=== PATIENT | female | born 1940 | race Caucasian/White ===

== ENCOUNTER → 2018-03-04 | Outpatient (REF) | payer MEDICARE ==
[~2018-03-04] MED LIST: ACCURETI1 PO; ATORVASTATIN CA10 MG PO; BACTRIM DS1 TAB PO; BONIVA150 MG OR; CALCIUM600 M1 OR; CLINDAMYCIN300 MG PO; CLOPIDOGREL75 MG PO; DETROL LA4 MG PO; HYDROXYCHLOR200 M1 OR; HYDROXYCHLOR200 M1 PO; IRON325 M1 PO; MULTIVITAM10 OR; VITAMIN B-1100 M2 OR; ZPAK PO
[2018-03-04 08:22] LABS: HEMATOCRIT 40.1 % (37.0-47.0); HEMOGLOBIN 13.1 g/dl (12.0-16.0); IMMATURE GRANULOCYTES 0.3 % (0.0-5.0); MEAN CELL VOLUME 101.5 fL CALC (80.0-100.0); MEAN CORPUSCULAR HGB 33.2 pG CALC (26.0-32.0); MEAN CORPUSCULAR HGB CONC 32.7 g/L CALC (32.0-36.0); NEUT# 1.51 thou/uL (2.00-7.15); RED BLOOD COUNT 3.95 mill/uL (4.20-5.60); RED CELL DISTRI WIDTH 12.4 % (11.5-15.5)
[2018-03-04 08:42] LABS: ALBUMIN 3.7 g/dL (3.2-5.0); ALKALINE PHOSPHATASE 60 u/l (38-126); ANION GAP 9 (6-22 (CALC)); BILIRUBIN, TOTAL 1.2 mg/dL (0.0-1.4); BUN 20 mg/dL (8-23); BUN/CREATININE RATIO 37 (12-20 (CALC)); CALCULATED LDLCHOLESTEROL 49 mg/dL (62-129 (CALC)); CARBON DIOXIDE 32 mmol/l (22-30); CHLORIDE 106 mmol/l (95-108); CHOLESTEROL HDL RATIO 1.6 (<4.4 (CALC)); CREATININE 0.5 mg/dL (0.5-1.0); GFR > 60 ML/MIN (>=60 (CALC)); GFR FOR AFR.AMER. > 60 ML/MIN (>=60 (CALC)); HDL CHOLESTEROL 92 mg/dL (>=40); POTASSIUM 4.1 mmol/l (3.5-5.1); SGOT/AST 39 u/l (9-36); SODIUM 143 mmol/l (137-146); TOTAL CHOLESTEROL 151 mg/dl (0-199); TOTAL PROTEIN 6.3 g/dL (6.3-8.2); TOTAL TRIGLYCERIDES 47 mg/dl (30-149); VLDL CHOLESTROL 9 mg/dl (0-48 (CALC))
== END | disposition home or self-care (01) ==
LOC: LAB 07:31
PROVIDERS: ATTEND Internal Medicine
DX: D64.9 Anemia, unspecified (principal); D69.6 Thrombocytopenia, unspecified; D72.819 Decreased white blood cell count, unspecified; I10 Essential (primary) hypertension; L93.2 Other local lupus erythematosus; E78.49 Other hyperlipidemia

== ENCOUNTER → 2018-07-17 | Outpatient (REF) | payer MEDICARE ==
[2018-07-17 08:11] LABS: HEMATOCRIT 38.1 % (37.0-47.0); HEMOGLOBIN 12.3 g/dl (12.0-16.0); IMMATURE GRANULOCYTES 0.3 % (0.0-5.0); MEAN CELL VOLUME 102.7 fL CALC (80.0-100.0); MEAN CORPUSCULAR HGB 33.2 pG CALC (26.0-32.0); MEAN CORPUSCULAR HGB CONC 32.3 g/L CALC (32.0-36.0); NEUT# 1.02 thou/uL (2.00-7.15); RED BLOOD COUNT 3.71 mill/uL (4.20-5.60); RED CELL DISTRI WIDTH 12.8 % (11.5-15.5)
[2018-07-17 08:35] LABS: ALBUMIN 3.5 g/dL (3.2-5.0); ALKALINE PHOSPHATASE 56 u/l (38-126); ANION GAP 10 (6-22 (CALC)); BUN 9 mg/dL (8-23); BUN/CREATININE RATIO 14 (12-20 (CALC)); CARBON DIOXIDE 30 mmol/l (22-30); CHLORIDE 105 mmol/l (95-108); CREATININE 0.6 mg/dL (0.5-1.0); GFR > 60 ML/MIN (>=60 (CALC)); GFR FOR AFR.AMER. > 60 ML/MIN (>=60 (CALC)); POTASSIUM 3.9 mmol/l (3.5-5.1); SGOT/AST 34 u/l (9-36); SODIUM 141 mmol/l (137-146); TOTAL PROTEIN 5.8 g/dL (6.3-8.2)
== END | disposition home or self-care (01) ==
LOC: LAB 07:05
PROVIDERS: ATTEND Internal Medicine
DX: D50.9 Iron deficiency anemia, unspecified (principal); D53.9 Nutritional anemia, unspecified; D69.6 Thrombocytopenia, unspecified; E78.5 Hyperlipidemia, unspecified; I10 Essential (primary) hypertension

== ENCOUNTER → 2018-07-22 | Outpatient (REF) | payer MEDICARE | END | disposition home or self-care (01) | LOC: MAMMO 07-21 08:30 | PROVIDERS: ATTEND Internal Medicine | DX: Z12.31 Encounter for screening mammogram for malignant neoplasm of breast (principal) ==

== ENCOUNTER 2019-03-01 12:39 | Emergency (ER) | payer MEDICARE ==
[~2019-03-01] VITALS: Ht 160 cm; Wt 56.8 kg
[2019-03-01 13:08] LABS: HEMATOCRIT 34.4 % (37.0-47.0); HEMOGLOBIN 11.5 g/dl (12.0-16.0); IMMATURE GRANULOCYTES 1.1 % (0.0-5.0); MEAN CELL VOLUME 103.3 fL CALC (80.0-100.0); MEAN CORPUSCULAR HGB 34.5 pG CALC (26.0-32.0); MEAN CORPUSCULAR HGB CONC 33.4 g/L CALC (32.0-36.0); NEUT# 2.72 thou/uL (2.00-7.15); RED BLOOD COUNT 3.33 mill/uL (4.20-5.60); RED CELL DISTRI WIDTH 12.8 % (11.5-15.5)
[2019-03-01] MEDS ORDERED: PROTONIX40 M2 PO (13:14)
[2019-03-01 13:32] LABS: ANION GAP 10 (6-22 (CALC)); BUN 17 mg/dL (8-23); BUN/CREATININE RATIO 31 (12-20 (CALC)); CARBON DIOXIDE 28 mmol/l (22-30); CHLORIDE 105 mmol/l (95-108); CREATININE 0.5 mg/dL (0.5-1.0); GFR > 60 ML/MIN (>=60 (CALC)); GFR FOR AFR.AMER. > 60 ML/MIN (>=60 (CALC)); POTASSIUM 3.8 mmol/l (3.5-5.1); SODIUM 139 mmol/l (137-146)
[2019-03-01] MEDS ORDERED: TRAMADOL HYDROC50 MG PO (13:41)
[2019-03-01 21:30] VITALS: BP 158/69
== END 2019-03-01 21:30 | disposition short-term general hospital (02) ==
LOC: ED 12:39 → ED-I 13:14 → ED 13:14 → ED-I 15:08 → ED 15:24 → MS2 15:25 → ED 21:30
PROVIDERS: Family Medicine
DX: S72.144A Nondisplaced intertrochanteric fracture of right femur, initial encounter for closed fracture (principal); I10 Essential (primary) hypertension; W18.30XA Fall on same level, unspecified, initial encounter; Y93.E9 Activity, other interior property and clothing maintenance; Y92.009 Unspecified place in unspecified non-institutional (private) residence as the place of occurrence of the external cause; Z86.73 Personal history of transient ischemic attack (TIA), and cerebral infarction without residual deficits

== ENCOUNTER 2019-03-14 16:40 | Observation (INO) | payer MEDICARE ==
[~2019-03-14] VITALS: Ht 160 cm; Wt 55.6 kg
[~2019-03-14 16:40] MED LIST changes: +PROTONIX40 M2 PO; +TRAMADOL HYDROC50 MG PO
--- NOTE | 2019-03-14 16:47 | NUR ---
PT TO ROOM VIA WC
[2019-03-14] MEDS ORDERED: POLY GLYCOL3350 MG PO (16:52)
[2019-03-14] MEDS ORDERED: DOCUSATE PO (16:54)
--- NOTE | 2019-03-14 17:05 | NUR ---
PT PRESENTS RIGHT HIP WITH RAISED ROUND NODULE ABOUT 6.5-7 CM IN DIAMITER. BRUISING AND REYNALDO ARE VISIBLE. PT STATES A PAIN OF 10/10. CALL LIGHT WITHIN REACH, WILL CONTINUE TO MONITOR.
--- NOTE | 2019-03-14 17:06 | NUR ---
ASSISTED PT TO BEDSIDE COMODE. COLLECTED URINE AND SENT OUT TO LAB
--- NOTE | 2019-03-14 17:15 | NUR ---
IV INTITIATED, FLUSHED. PT DENIES PAIN AND IV SITE ABSENT OF ANY REDNESS. 20 G USED. LABS DRAWN AND BLOOD CULTURES COLLECTED.
[2019-03-14 17:20] LABS: HEMATOCRIT 30.6 % (37.0-47.0); HEMOGLOBIN 9.7 g/dl (12.0-16.0); IMMATURE GRANULOCYTES 0.4 % (0.0-5.0); MEAN CORPUSCULAR HGB 32.3 pG CALC (26.0-32.0); MEAN CORPUSCULAR HGB CONC 31.7 g/L CALC (32.0-36.0); NEUT# 3.5 thou/uL (2.00-7.15); RED CELL DISTRI WIDTH 17.1 % (11.5-15.5)
[2019-03-14 17:52] LABS: ALBUMIN 3.4 g/dL (3.2-5.0); ALKALINE PHOSPHATASE 114 u/l (38-126); ANION GAP 10 (6-22 (CALC)); BILIRUBIN, TOTAL 1.5 mg/dL (0.0-1.4); BUN 13 mg/dL (8-23); BUN/CREATININE RATIO 25 (12-20 (CALC)); CARBON DIOXIDE 29 mmol/l (22-30); CHLORIDE 100 mmol/l (95-108); CREATININE 0.5 mg/dL (0.5-1.0); GFR > 60 ML/MIN (>=60 (CALC)); GFR FOR AFR.AMER. > 60 ML/MIN (>=60 (CALC)); POTASSIUM 4.2 mmol/l (3.5-5.1); SGOT/AST 26 u/l (9-36); SODIUM 135 mmol/l (137-146); TOTAL PROTEIN 5.9 g/dL (6.3-8.2)
--- NOTE | 2019-03-14 18:15 | NUR ---
PT RESTING ON STRETCHER AOX4. CALL LIGHT WITHIN REACH. PT DENIES ANY NEEDS AT THIS TIME. WILL CONTINUE TO MONITOR.
--- NOTE | 2019-03-14 18:30 | NUR ---
ADMINISTERED PUREWICK.
--- NOTE | 2019-03-14 18:35 | NUR ---
PURWICK REMOVED. UNSUCESSFUL, CHANGED LINENS.
--- NOTE | 2019-03-14 19:03 | NUR ---
REPORT AKIL ROMERO
--- NOTE | 2019-03-14 19:20 | NUR ---
PT UP TO BEDSIDE COMMODE WITH MINIMAL ASSIST. PT STATES SHE FEELS GOOD STANDING. CALL SALMERON IN REACH.
--- NOTE | 2019-03-14 19:30 | NUR ---
PT DONE AND ASSISTED TO WHEEL CHAIR. REPORT GIVEN WAITING ON ORDERS. ALEKSANDR COMPLETE NO REACTION TO MEDICATION. PT STATES SHE PREFERS TO SIT IN CHAIR THEN GET BACK INTO BED.
--- NOTE | 2019-03-14 19:45 | NUR ---
Admission Note Report Given to: MILENA FAIR Transported by: X Wheelchair Stretcher Transported with: X Nurse Transporter X Patent IV O2 Layer Out Plate Glass
[2019-03-14 20:00] VITALS: BP 161/79
--- NOTE | 2019-03-14 21:00 | NUR ---
PATIENT ADMITTED FROM ER VIA WHEELCHAIR WITH ER STAFF IN ATTENDANCE. PATIENT IS AWAKE ALERT AND ORIENTEDX3. PATIENT IS ABLE TO STAND ON SCALE AND TRANSFER TO BED. PATIENT IS BEING ADMITTED FOR RIGHT HIP ABCESS. PATIENT WITH RECENT FALL AT HOME-WAS SENT TO [facility] FOR ORIF RIGHT HIP BY DR. TORRES. PATIENT WAS THEN TRANSFERRED TO [facility] FOR THERAP. DEVELOPED THIS ABCESS WHILE THERE AND SENT TO THER TODAY. PATIENT ALSO WITH STAGE 2 TO BUTTOCKS AND COCCYX AREA. PHOOS WERE TAKEN OF THESE WOUNDS. REYNALDO ARE STILL INTACT TO RIGHT HIP INCISIONS. NO OPEN DRAINAGE NOTED TO RIGHT HIP. BRUISING ALSO NOTED TO RIGHT HI P AND RLE. PATIENT HX OF MRSA-LEFT NARE SWABBED AND PATIENT PLACED ON CONTACT PRECAUTIONS. PATIENT DECLINES TEDS AT THIS TIME. ABD IS SOFT WITH ACTIVE BS. LUNGS ARE CLEAR. NO EDEMA NOTED. PEDAL PULSES ARE PALPABLE. PROVIDED WITH LORETA CRACKERS AND DRINK FOR SNACK. LAST BM WAS 03/12/19 PER PATIENT AND DENIES ANY DIFFICULTY WITH URINATION. PATIENT ORIENTED TO ROOM AND SURROUNDINGS. INSTRUCTED ON USE OF NURSE CALL LIGHT SYSTEM, TV REMOTE AND PHONE. SAFETY PRECAUTIONS REINFORCED. CALL LIGHT IN REACH. WILL CONT TO MONITOR.
--- NOTE | 2019-03-15 01:20 | NUR ---
PATIENT MIN ASSIST TO BR TO VOID YELLOW URINE-PATIENT UP AND DOWN SEVERAL TIMES IN SHORT PERIOD OF TIME-<1HOUR. DENIES ANY BURNING OR PAIN WITH URINATION. MIN ASSIST BACK TO BED WITH USE OF WALKER. ENCOURAGED TO STAY OFF HER BUTTOCK AND POSITIONED ON RIGHT SIDE. SAFETY PRECAUTIONS REINFORCED. CALL LIGHT IN REACH. WILL CONT TO MONITOR.
[2019-03-15 04:04] VITALS: BP 129/74
--- NOTE | 2019-03-15 04:24 | NUR ---
PATIENT APPEARS SLEEPING AT THIS TIME-EYES CLOSED. RESP ARE EVEN AND NLABORED. CALL LIGHT IN REACH. WILL CONT TO MONITOR.
--- NOTE | 2019-03-15 06:21 | NUR ---
PATIENT CALLED AND ASSISTED TO BR TO VOID USING HER WALKER. PATIENT SEEMS TO BE HAVING A POPPING SOUND COMING FROM HER RIGHT HIP. ASSISTED BACK TO BED. CALL LIGHT IN REACH. WILL CONT TO MONITOR.
--- NOTE | 2019-03-15 07:15 | NUR ---
REPORT RECEIVED FROM MILENA FAIR;PT RESTING IN SEMI FOWLERS POSITION;INTRODUCED SELF TO PT AND POC DISCUSSED;RESPIRATIONS EVEN AND UNLABORED ON RA;PT DENIES ANY CURRENT NEEDS AT THIS TIME AND IS ENCOURAGED TO CALL FOR ASSISTANCE IF NEEDED;CONTACT PRRECAUTIONS NOTED;FALL PRECAUTIONS IN PLACE WITH BED IN THE LOWEST POSITION AND CALL LIGHT IN REACH;WILL CONTINUE TO MONITOR
[2019-03-15 08:15] VITALS: BP 133/66
--- NOTE | 2019-03-15 08:15 | NUR ---
PT RESTING IN SEMI FOWLERS POSITION,A&O X3;VS OBTAINED AND ASSESSMENT COMPLETED;PT DENIES ANY CURRENT PAIN OR DISCOMFORTS,PAIN SCALE AND REPORTING EDUCATED;RESPIRATIONS EVEN AND UNLABORED ON RA,CLEAR LUNG SOUNDS;ABDOMEN SOFT ON PALPATION AND ACTIVE IN ALL 4 QUADRANTS;WEAK PEDAL PULSES;STAGE 2 PRESSURE ULCER TO COCCYX NOTED, AQUACEL FOAM DRESSING APPLIED;PT POST OP RIGHT TOTAL HIP, INCISION INTACT BUT SEROMA VS ABSCESS NOTED;BRUSING NOTED THROUGHOUT RIGHT LEG;WEAK PEDAL PULSES;#20G TO RAC FLUSHED AND PATENT,SITE APPEARS HEALTHY;PT DENIES ANY ADDITIONAL NEEDS AT THIS TIME AND IS ENCOURAGED TO CALL FOR ASSISTANCE IF NEEDED;FALL PRECAUTIONS IN PLACE WITH CALL LIGHT IN REACH;WILL CONTINUE TO MONITOR
--- NOTE | 2019-03-15 10:17 | NUR ---
WES RIOS, ANRP AT BEDSIDE DISCUSSING POC.
--- NOTE | 2019-03-15 10:26 | NUR ---
PT RESTING IN SEMI FOWLERS POSITION COMPLAINING FOR RT HIP PAIN RATING 7/10 ON THE PAIN SCALE AND REQUESTS PAIN MEDICATION;PT MEDICATED WITH PERCOCET 5/325MG PO;WILL CONTINUE TO MONITOR FOR EFFECTIVENESS
--- NOTE | 2019-03-15 11:32 | NUR ---
AT BEDSIDE DISCUSSING POC.
--- NOTE | 2019-03-15 12:00 | NUR ---
PT OOB RESTING IN RECLINER WITH SPOUSE AT BEDSIDE;RESPIRATIONS EVEN AND UNLABORED ON RA;PT DENIES ANY CURRENT PAIN OR DISCOMFORTS;ASSESSMENT REMAINS UNCHANGED AT THIS TIME AND IS ENCOURAGED TO CALL FOR ASSISTANCE IF NEEDED;FALL PRECAUTIONS IN PLACE WITH CALL LIGHT IN REACH;WILL CONTINUE TO MONITOR
--- NOTE | 2019-03-15 15:08 | NUR ---
PHYSICAL THERAPY AT BEDSIDE WORKING WITH PATIENT.
[2019-03-15 16:36] VITALS: BP 123/62
--- NOTE | 2019-03-15 16:40 | NUR ---
PT OOB RESTING IN RECLINER;RESPIRATIONS EVEN AND UNLABORED ON RA;PT REPORTS RIGHT HIP PAIN RATING 8/10 ON THE PAIN SCALE AND REQUESTS PRN PAIN MEDICATION, PT TO BE MEDICATED WITH PRN PERCOCET 5/325MG PO;IV SITE TO RAC REMAINS PATENT;PT DENIES ANY ADDITIONAL NEEDS AT THIS TIME AND IS ENCOURAGED TO CALL FOR ASSISTANCE IF NEEDED;FALL PRECAUTIONS IN PLACE WITH CALL LIGHT IN REACH;WILL CONTINUE TO MONITOR
[2019-03-15 18:59] VITALS: BP 106/51
--- NOTE | 2019-03-15 19:30 | NUR ---
PATIENT RESTING IN BED WITH EYES CLOSED-APPEARS SLEEPING AT THIS TIME. RESP ARE EVEN AND UNLABORED. CALL LIGHT IN REACH. WILL CONT TO MONITOR.
--- NOTE | 2019-03-15 21:38 | NUR ---
PATIENT RESTING IN BED-C/O RIGHT HIP PAIN. TOO EARLY FOR PERCOCET SO PATIENT REQUESTING TYLENOL FOR PAIN-8/10 ON PAIN SCALE. MEDICATED WITH TYLENOL 650MG PO FOR PAIN. RIGHT HIP ABCESS REMAINS BUT THE ABCESS IS MUCH SOFTER AND FEELS FLUID FILLED COMPARED TO LAST NIGHT AND EVEN THIS MORNING-WAS HARDER TO TOUCH WHEN ADMITTED LAST NIGHT. BRUISING REMAINS TO RIGHT HIP AND RLE. ENCOURAGED PATIENT TO STAY OFF BUTTOCKS AND COCCYX DUE TO STAGE 2 TO BUTTOCKS. VERBALIZES UNDERSTANDING BUT FOUND ON HER BACK MOST OF THE TIME. SALINE LOCK INTACT TO LEFT AC-REMAINS HEALTHY AT THIS TIME. CONTACT PRECAUTIONS FOR HX OF MRSA. SAFETY PRECAUTIONS REINFORCED. CALL LIGHT IN REACH. WILL CONT TO MONITOR.
--- NOTE | 2019-03-15 23:25 | NUR ---
PATIENT STATES NO RELIEF FROM TYLENOL GIVEN. MEDICATED WITH PERCOCET 5/325MG PO FOR 8/10 PAIN TO RIGHT HIP. MEDICATED EALIER FOR SLEEP. SAFETY PRECAUTIONS REINFORCED. CALL LIGHT IN REACH. WILL CONT TO MONITOR.
--- NOTE | 2019-03-16 03:37 | NUR ---
PATIENT APPEARS SLEEPING WITH EYES CLOSED. RESP ARE EVEN AND UNLABORED, CALL LIGHT IN REACH. WILL CONT TO MONITOR.
[2019-03-16 04:05] VITALS: BP 139/61
--- NOTE | 2019-03-16 06:55 | NUR ---
REPORT RECEIVED FROM MILENA FAIR;PT RESTING IN SEMI FOWLERS POSITION;INTRODUCED SELF TO PT AND POC DISCUSSED;RESPIRATIONS EVEN AND UNLABORED ON RA;PT DENIES ANY CURRENT NEEDS AND IS ENCOURAGED TO CALL FOR ASSISTANCE IF NEEDED;FALL PRECAUTIONS IN PLACE WITH BED IN THE LOWEST POSITION AND CALL LIGHT IN REACH;WILL CONTINUE TO MONITOR
[2019-03-16 07:24] LABS: HEMATOCRIT 30.8 % (37.0-47.0); HEMOGLOBIN 9.8 g/dl (12.0-16.0); MEAN CELL VOLUME 101.7 fL CALC (80.0-100.0); MEAN CORPUSCULAR HGB 32.3 pG CALC (26.0-32.0); MEAN CORPUSCULAR HGB CONC 31.8 g/L CALC (32.0-36.0); RED BLOOD COUNT 3.03 mill/uL (4.20-5.60); RED CELL DISTRI WIDTH 16.9 % (11.5-15.5)
[2019-03-16 07:41] LABS: PROTHROMBIN TIME 10.1 SECONDS (9.0-12.5)
--- NOTE | 2019-03-16 07:50 | NUR ---
PT OOB RESTING IN RECLINER,A&O TO PERSON AND PLACE FORGETFUL AT TIMES;VS OBTAINED AND ASSESSMENT COMPLETED;PT DENIES ANY CURRENT PAIN OR DISCOMFORTS,PAIN SCALE AND REPORTING EDUCATED;PT VERBALIZES UNDERSTANDING OF SCHEDULED GUIDED US NEEDLE ASPIRATION OF RT HIP,ALL QUESTIONS ANSWERED;RESPIRATIONS EVEN AND UNLABORED ON RA,CLEAR LUNG SOUNDS;ABDOMEN SOFT ON PALPATION AND ACTIVE IN ALL 4 QUADRANTS;BRUISING AND SOFT SEROMA NOTED TO RIGHT HIP, INCISONAL REYNALDO NOTED TO BE IN PLACE FROM POST OP ORIF;STRONG PEDAL PULSES;STAGE 2 PRESSURE ULCER NOTED TO COCCYX, PT REFUSES DRESSING AT THIS TIME;ENCOURAGED FREQUENT RE-POSITIONING;#20G TO RAC FLUSHED AND PATENT,SITE APPEARS HEALTHY;CONTACT PRECAUTIONS IN PLACE;PT DENIES ANY ADDITIONAL NEEDS AND IS ENCOURAGED TO CALL FOR ASSISTANCE IF NEEDED;FALL PRECAUTIONS IN PLACE WITH CALL LIGHT IN REACH;WILL CONTINUE TO MONITOR
[2019-03-16 07:52] VITALS: BP 132/68
--- NOTE | 2019-03-16 07:58 | NUR ---
PT TRANSPORTED TO RADIOLOGY VIA WHEELCHAIR IN STABLE CONDITION VIA WHEELCHAIR ACCOMPANIED BY ROSIE TIM.
--- NOTE | 2019-03-16 08:28 | NUR ---
PT RETURNED BACK TO MED/SURG ROOM 290 IN STABLE CONDITION VIA WHEELCHAIR ACCOMPANIED BY ROSIE TIM.
--- NOTE | 2019-03-16 09:05 | NUR ---
PT REPORTS RT HIP PAIN RATING 7/10 ON THE PAIN SCALE AND REQUESTS PAIN MEDICATION, PT MEDICATED WITH PRN PERCOCET 5/325MG PO AND RE-POSITIONED FOR COMFORT;WILL CONTINUE TO MONITOR
--- NOTE | 2019-03-16 09:56 | NUR ---
PHYSICAL THERAPY AMBULATING THE HALLWAY WITH PATIENT.
--- NOTE | 2019-03-16 11:19 | NUR ---
PATIENT REPORTED HER HIP IS BETTER AFTER THEY EXTRACTED BLOOD. PATIENT PERFORMED GAIT TRAINING USING 2WW, 120 FEET, CGA/SBA FOR SAFETY. VERBAL CUES NEEDED TO WIDEN KEN TO INCREASE STABILITY AND PREVENT HIP PAIN DUE TO POOR POSTURE, B LE SHOULD BE SHOULDER LENGTH. PATIENT ABLE TO CORRECTLY RETURN DEMONSTRATE. PATIENT PERFORMED TRANSFER TRAINING (SIT <> STAND), SUPREVISION/MOD-I WITH GOOD SEQUENCING AND SAFETY AWARENESS.
--- NOTE | 2019-03-16 11:55 | NUR ---
AT BEDSIDE DISCUSSING POC WITH PT AND SPOUSE.
--- NOTE | 2019-03-16 11:57 | NUR ---
CALLED PLACED TO 'S OFFICE REGARDING CONSULT.
--- NOTE | 2019-03-16 12:00 | NUR ---
PT OOB RESTING IN RECLINER WITH SPOUSE AT BEDSIDE;RESPIRATIONS EVEN AND UNLABORED ON RA;PT DENIES ANY CURRENT PAIN OR DISCOMFORTS;IV SITE PATENT;ASSESSMENT REMAINS UNCHANGED AT THIS TIME;ENCOURAGED TO CALL FOR ASSISTANCE IF NEEDED;CALL LIGHT IN REACH;WILL CONTINUE TO MONITOR
--- NOTE | 2019-03-16 12:55 | NUR ---
PT MEDICATED WITH PRN TYLENOL 650MG PO FOR RIGHT HIP PAIN RATING 4/10 ON THE PAIN SCALE,WILL CONTINUE TO MONITOR
--- NOTE | 2019-03-16 13:11 | NUR ---
AT BEDSIDE WITH CAREER PLACEMENT SERVICES COUNSELOR.
[2019-03-16] MEDS ORDERED: PERCOCET 5/325M1 TAB PO (13:19)
[2019-03-16 14:30] VITALS: BP 114/57
--- NOTE | 2019-03-16 15:05 | NUR ---
ALL DISCHARGE INSTRUCTIONS PROVIDED AT THIS TIME;RX FOR PERCOCET PROVIDED AND PT INSTRUCTED TO USE ONLY WHEN NEEDED, F/U WITH PCP AND ,HOME HEALTH AND PT;IV SITE REMOVED WITH CATHETER INTACT;PT DENIES ANY ADDITIONAL NEEDS;WHEELCHAIR TO BE PROVIDED FOR D/C HOME;SPOUSE TO TRANSPORT HOME.
--- NOTE | 2019-03-16 15:15 | NUR ---
Discharge instructions given. Patient verbalizes understanding of same. Discharged in stable condition via Wheelchair to Home with spouse. All belongings sent with pt. Pt transported to [facility] via wheelchair in stable condition accompanied by billy sparks.
== END 2019-03-16 15:15 ==
LOC: ED 16:40 → ED-I 18:32 → ED 18:48 → MS2 18:49
PROVIDERS: Internal Medicine; ADMIT Internal Medicine; ATTEND Internal Medicine
PROC: 0J9L3ZZ Drainage of Right Upper Leg Subcutaneous Tissue and Fascia, Percutaneous Approach (ICD-10-PCS; principal; 2019-03-16)
DX: L76.32 Postprocedural hematoma of skin and subcutaneous tissue following other procedure (principal); I10 Essential (primary) hypertension; K21.9 Gastro-esophageal reflux disease without esophagitis; E78.5 Hyperlipidemia, unspecified; M06.9 Rheumatoid arthritis, unspecified; S72.141D Displaced intertrochanteric fracture of right femur, subsequent encounter for closed fracture with routine healing; X58.XXXD Exposure to other specified factors, subsequent encounter; I69.931 Monoplegia of upper limb following unspecified cerebrovascular disease affecting right dominant side; L89.152 Pressure ulcer of sacral region, stage 2; Y83.8 Other surgical procedures as the cause of abnormal reaction of the patient, or of later complication, without mention of misadventure at the time of the procedure; Z87.891 Personal history of nicotine dependence
CPT/HCPCS: J1650

== ENCOUNTER 2019-03-19 10:31 | Emergency (ER) | payer MEDICARE ==
[~2019-03-19] VITALS: Ht 157.5 cm; Wt 56.0 kg
[~2019-03-19 10:31] MED LIST changes: +DOCUSATE PO; +PERCOCET 5/325M1 TAB PO; +POLY GLYCOL3350 MG PO
[2019-03-19 12:28] LABS: HEMATOCRIT 31.8 % (37.0-47.0); HEMOGLOBIN 10.1 g/dl (12.0-16.0); IMMATURE GRANULOCYTES 0.7 % (0.0-5.0); MEAN CELL VOLUME 101.6 fL CALC (80.0-100.0); MEAN CORPUSCULAR HGB 32.3 pG CALC (26.0-32.0); MEAN CORPUSCULAR HGB CONC 31.8 g/L CALC (32.0-36.0); NEUT# 4.26 thou/uL (2.00-7.15); RED BLOOD COUNT 3.13 mill/uL (4.20-5.60); RED CELL DISTRI WIDTH 16.7 % (11.5-15.5)
[2019-03-19 13:25] LABS: ALBUMIN 3.3 g/dL (3.2-5.0); ALKALINE PHOSPHATASE 110 u/l (38-126); ANION GAP 11 (6-22 (CALC)); BILIRUBIN, TOTAL 1.2 mg/dL (0.0-1.4); BUN 13 mg/dL (8-23); BUN/CREATININE RATIO 33 (12-20 (CALC)); CARBON DIOXIDE 28 mmol/l (22-30); CHLORIDE 100 mmol/l (95-108); CREATININE 0.4 mg/dL (0.5-1.0); GFR > 60 ML/MIN (>=60 (CALC)); GFR FOR AFR.AMER. > 60 ML/MIN (>=60 (CALC)); POTASSIUM 4.1 mmol/l (3.5-5.1); SGOT/AST 25 u/l (9-36); SODIUM 136 mmol/l (137-146); TOTAL PROTEIN 5.9 g/dL (6.3-8.2)
[2019-03-19 14:36] VITALS: BP 131/65
== END 2019-03-19 15:00 | disposition home or self-care (01) ==
LOC: ED 10:31
PROC: 0J9L3ZZ Drainage of Right Upper Leg Subcutaneous Tissue and Fascia, Percutaneous Approach (ICD-10-PCS; principal; 2019-03-19)
DX: L76.32 Postprocedural hematoma of skin and subcutaneous tissue following other procedure (principal); I10 Essential (primary) hypertension; Y83.8 Other surgical procedures as the cause of abnormal reaction of the patient, or of later complication, without mention of misadventure at the time of the procedure; Z86.73 Personal history of transient ischemic attack (TIA), and cerebral infarction without residual deficits; Z79.02 Long term (current) use of antithrombotics/antiplatelets

== ENCOUNTER 2019-04-23 11:55 | Emergency (ER) | payer MEDICARE ==
[~2019-04-23] VITALS: Ht 157.5 cm; Wt 60.0 kg
[2019-04-23 13:00] LABS: IMMATURE GRANULOCYTES 0.3 % (0.0-5.0); MEAN CELL VOLUME 102.4 fL CALC (80.0-100.0); MEAN CORPUSCULAR HGB 31.8 pG CALC (26.0-32.0); NEUT# 2.12 thou/uL (2.00-7.15); RED BLOOD COUNT 3.81 mill/uL (4.20-5.60); RED CELL DISTRI WIDTH 14.2 % (11.5-15.5)
[2019-04-23 13:05] LABS: HEMOGLOBIN 12.1 g/dl (12.0-16.0)
[2019-04-23 13:20] LABS: ALBUMIN 3.6 g/dL (3.2-5.0); ALKALINE PHOSPHATASE 77 u/l (38-126); ANION GAP 11 (6-22 (CALC)); BUN 20 mg/dL (8-23); BUN/CREATININE RATIO 41 (12-20 (CALC)); CARBON DIOXIDE 28 mmol/l (22-30); CHLORIDE 102 mmol/l (95-108); CREATININE 0.5 mg/dL (0.5-1.0); GFR > 60 ML/MIN (>=60 (CALC)); GFR FOR AFR.AMER. > 60 ML/MIN (>=60 (CALC)); LIPASE < 10 u/l (23-300); POTASSIUM 4.1 mmol/l (3.5-5.1); SGOT/AST 33 u/l (9-36); SODIUM 137 mmol/l (137-146); TOTAL PROTEIN 6.2 g/dL (6.3-8.2)
[2019-04-23 13:23] LABS: URINE BILIRUBIN - DIPSTICK NEGATIVE (NEGATIVE); URINE BLOOD DIPSTICK NEGATIVE (NEGATIVE); URINE COLOR YELLOW; URINE GLUCOSE - DIPSTICK NEGATIVE (NEGATIVE); URINE KETONE NEGATIVE (NEGATIVE); URINE LEUK ESTERASE NEGATIVE (NEGATIVE); URINE NITRITE - DIPSTICK NEGATIVE (Negative); URINE PROTEIN - DIPSTICK NEGATIVE (NEG-TRACE); URINE SPECIFIC GRAVITY 1.025; URINE UROBILINOGEN - DIPSTICK 0.2 E.U./dL (0.2)
[2019-04-23 13:23] LABS: AMYLASE < 30 u/l (30-110); BILIRUBIN, TOTAL 0.7 mg/dL (0.0-1.4)
[2019-04-23 13:32] LABS: MYOGLOBIN 65 ng/mL (0 - 62)
[2019-04-23] MEDS ORDERED: ONDANSETRON4 MG PO (14:09)
[2019-04-23] MEDS ORDERED: ANTIVERT PO (14:09)
[2019-04-23 14:34] VITALS: BP 144/63
== END 2019-04-23 14:34 | disposition home or self-care (01) ==
LOC: ED 11:55
PROVIDERS: Emergency Medicine
DX: R42 Dizziness and giddiness (principal); I10 Essential (primary) hypertension; Z86.73 Personal history of transient ischemic attack (TIA), and cerebral infarction without residual deficits

== ENCOUNTER → 2024-01-27 | Emergency (ER) | payer MEDICARE ==
[~2024-01-27] VITALS: Ht 157.5 cm; Wt 58.9 kg
[2024-01-27] VITALS (9 sets, daily range): BP systolic 142–165; BP diastolic 65–105
[~2024-01-27] MED LIST changes: +ANTIVERT PO; +ONDANSETRON4 MG PO; +TRAMADOL HYDROC50 M1 PO; +traMADol HCL 50 MG/TAB PO ONE
[2024-01-27 10:00] LABS: BASO% 0.9 % (0-3); EOS% 1.1 % (0-8); HEMATOCRIT 35.2 % (37.0-47.0); HEMOGLOBIN 11.4 g/dl (12.0-16.0); IMMATURE GRANULOCYTES 0.3 % (0.0-5.0); LYMPH% 9.5 % (15-41); MEAN CELL VOLUME 103.2 fL CALC (80.0-100.0); MEAN CORPUSCULAR HGB 33.4 pG CALC (26.0-32.0); MEAN CORPUSCULAR HGB CONC 32.4 g/dL CAL (32.0-36.0); MONO% 10.7 % (2-13); NEUT% 77.5 % (42-76); RED BLOOD COUNT 3.41 mill/uL (4.20-5.60); RED CELL DISTRI WIDTH 13.8 % (11.5-15.5)
[2024-01-27 10:10] LABS: ALBUMIN 3.7 g/dL (3.2-5.0); CREATININE 0.7 mg/dL (0.5-1.0); POTASSIUM 3.5 mmol/l (3.5-5.1)
== END | disposition home or self-care (01) ==
LOC: ED 09:29
PROVIDERS: Family Medicine
DX: S80.01XA Contusion of right knee, initial encounter (principal); S81.812A Laceration without foreign body, left lower leg, initial encounter; I10 Essential (primary) hypertension; E78.5 Hyperlipidemia, unspecified; W01.0XXA Fall on same level from slipping, tripping and stumbling without subsequent striking against object, initial encounter; Y92.009 Unspecified place in unspecified non-institutional (private) residence as the place of occurrence of the external cause; Z86.73 Personal history of transient ischemic attack (TIA), and cerebral infarction without residual deficits

== ENCOUNTER 2024-06-07 13:02 | Emergency (ER) | payer MEDICARE ==
[~2024-06-07] VITALS: Ht 152.4 cm; Wt 45.3 kg
[2024-06-07] VITALS (7 sets, daily range): BP systolic 109–135; BP diastolic 49–61
[~2024-06-07 13:02] MED LIST changes: -PROTONIX40 M2 PO; +PROTONIX40 MG PO; -traMADol HCL 50 MG/TAB PO ONE
== END 2024-06-07 16:32 | disposition home or self-care (01) ==
LOC: ED 13:02
DX: T17.928A Food in respiratory tract, part unspecified causing other injury, initial encounter (principal); I10 Essential (primary) hypertension; K21.9 Gastro-esophageal reflux disease without esophagitis; M06.9 Rheumatoid arthritis, unspecified; W44.F3XA Food entering into or through a natural orifice, initial encounter; Y92.129 Unspecified place in nursing home as the place of occurrence of the external cause; Z95.810 Presence of automatic (implantable) cardiac defibrillator; Z86.73 Personal history of transient ischemic attack (TIA), and cerebral infarction without residual deficits; Z87.11 Personal history of peptic ulcer disease

== ENCOUNTER 2024-06-14 10:55 | Inpatient (IN) | payer MEDICARE ==
[~2024-06-14] VITALS: Ht 152.4 cm; Wt 47.6 kg
[2024-06-14] VITALS (36 sets, daily range): BP systolic 105–138; BP diastolic 42–66
[2024-06-14 11:36] LABS: BASO% 0.2 % (0-3); HEMATOCRIT 27.4 % (37.0-47.0); IMMATURE GRANULOCYTES 1.4 % (0.0-5.0); MEAN CELL VOLUME 117.1 fL CALC (80.0-100.0); MEAN CORPUSCULAR HGB 34.2 pG CALC (26.0-32.0); MEAN CORPUSCULAR HGB CONC 29.2 g/dL CAL (32.0-36.0); MONO% 4.3 % (2-13); NEUT# 12.58 thou/uL (2.00-7.15); NEUT% 90.1 % (42-76); RED BLOOD COUNT 2.34 mill/uL (4.20-5.60); RED CELL DISTRI WIDTH 19.1 % (11.5-15.5)
[2024-06-14 11:44] LABS: ALBUMIN 2.7 g/dL (3.2-5.0); CREATININE 0.6 mg/dL (0.5-1.0); POTASSIUM 3.2 mmol/l (3.5-5.1); TOTAL PROTEIN 5.2 g/dL (6.3-8.2)
[2024-06-14 14:06] LABS: URINE BILIRUBIN - DIPSTICK Negative (NEGATIVE); URINE BLOOD DIPSTICK Negative (NEGATIVE); URINE GLUCOSE - DIPSTICK Negative (NEGATIVE); URINE KETONE Negative (NEGATIVE); URINE LEUK ESTERASE Trace (NEGATIVE); URINE NITRITE - DIPSTICK Negative (Negative); URINE PROTEIN - DIPSTICK Negative (NEG-TRACE); URINE SPECIFIC GRAVITY 1.025; URINE UROBILINOGEN - DIPSTICK 0.2 E.U./dL (0.2)
[2024-06-14 14:20] LABS: URINE COLOR Yellow
[2024-06-14] MEDS ORDERED: POTASSIUM CHLORIDE 20 MEQ/TAB PO ONE (15:00)
[2024-06-14] MEDS ORDERED: traMADol HCL 50 MG/TAB PO PRN (16:05)
[2024-06-14] MEDS ORDERED: ACETAMINOPHEN 325 MG/TAB PO PRN (16:05)
[2024-06-14] MEDS ORDERED: MAGNESIUM HYDROXIDE 30 ML UDC PO PRN (16:05)
[2024-06-14] MEDS ORDERED: KEFLEX500 MG PO (16:06)
[2024-06-14] MEDS ORDERED: TRAZODONE50 MG PO (16:21)
[2024-06-14] MEDS ORDERED: LISINOPRIL20 M1 PO (16:22)
[2024-06-14] MEDS ORDERED: POT CHLORIDE10 ME5 PO (16:23)
[2024-06-14] MEDS ORDERED: Zaleplon 5 MG/CAP PO PRN (20:45)
[2024-06-14] MEDS ORDERED: CEPHALEXIN MONOHYDRATE 500 MG/CAP PO SCH (21:00)
[2024-06-14] MEDS ORDERED: PANTOPRAZOLE SODIUM Sesquihydr 40 MG/TAB PO SCH (21:00)
[2024-06-14] MEDS ORDERED: ENOXAPARIN SODIUM 40 MG/0.4 ML SYR SC SCH (21:00)
[2024-06-15] VITALS (13 sets, daily range): BP systolic 87–112; BP diastolic 34–68
[2024-06-15] MEDS ORDERED: [UNRECOGNIZED DRUG - OTHER] PO (00:43)
[2024-06-15] MEDS ORDERED: MULTI VIT PO (00:44)
[2024-06-15 04:09] LABS: ALBUMIN 2.3 g/dL (3.2-5.0); BILIRUBIN, TOTAL 0.9 mg/dL (0.02-1.3); CREATININE 0.8 mg/dL (0.5-1.0); MAGNESIUM 1.9 mg/dL (1.6-2.3); POTASSIUM 3.8 mmol/l (3.5-5.1); TOTAL PROTEIN 4.6 g/dL (6.3-8.2)
[2024-06-15 04:13] LABS: BASO% 0.5 % (0-3); EOS% 0.6 % (0-8); HEMATOCRIT 23.8 % (37.0-47.0); HEMOGLOBIN 7.4 g/dl (12.0-16.0); IMMATURE GRANULOCYTES 1.2 % (0.0-5.0); LYMPH% 13.7 % (15-41); MEAN CORPUSCULAR HGB 34.1 pG CALC (26.0-32.0); MEAN CORPUSCULAR HGB CONC 31.1 g/dL CAL (32.0-36.0); MONO% 6.7 % (2-13); NEUT# 6.18 thou/uL (2.00-7.15); NEUT% 77.3 % (42-76); RED BLOOD COUNT 2.17 mill/uL (4.20-5.60); RED CELL DISTRI WIDTH 19.6 % (11.5-15.5)
[2024-06-15 04:20] LABS: MEAN CELL VOLUME 109.7 fL CALC (80.0-100.0)
[2024-06-15] MEDS ORDERED: SODIUM CHLORIDE 0.9% 1,000 ML IV PRN ×2 (07:45→10:00)
[2024-06-15] MEDS ORDERED: ATORVASTATIN CALCIUM 10 MG/TAB PO SCH (09:00)
[2024-06-15] MEDS ORDERED: FERROUS SULFATE 325 MG/TAB PO SCH (09:00)
[2024-06-15] MEDS ORDERED: HYDROXYCHLOROQUINE SULFATE 200 MG/TAB PO SCH (09:00)
[2024-06-15] MEDS ORDERED: SODIUM CHLORIDE 0.9% 500 ML IV SCH (10:30)
[2024-06-15] MEDS ORDERED: FUROSEMIDE 40 MG/4 ML SDV IV SCH (10:30)
[2024-06-15] MEDS ORDERED: FUROSEMIDE 40 MG/4 ML SDV IV ONE (21:05)
[2024-06-15] MEDS ORDERED: LACTATED RINGER'S 1,000 ML IV PRN (22:40)
[2024-06-16 00:56] VITALS: BP 99/48
[2024-06-16 03:05] VITALS: BP 113/30
[2024-06-16 05:47] LABS: BASO% 0.6 % (0-3); EOS% 2.9 % (0-8); IMMATURE GRANULOCYTES 1.7 % (0.0-5.0); LYMPH% 14.7 % (15-41); MEAN CELL VOLUME 104.5 fL CALC (80.0-100.0); MEAN CORPUSCULAR HGB 32.3 pG CALC (26.0-32.0); MEAN CORPUSCULAR HGB CONC 30.9 g/dL CAL (32.0-36.0); MONO% 7.9 % (2-13); NEUT# 4.77 thou/uL (2.00-7.15); NEUT% 72.2 % (42-76); RED BLOOD COUNT 3.1 mill/uL (4.20-5.60); RED CELL DISTRI WIDTH 23.6 % (11.5-15.5)
[2024-06-16 05:55] LABS: HEMATOCRIT 32.4 % (37.0-47.0)
[2024-06-16 06:01] LABS: ALBUMIN 2.4 g/dL (3.2-5.0); CREATININE 0.6 mg/dL (0.5-1.0); MAGNESIUM 2.3 mg/dL (1.6-2.3)
[2024-06-16 06:25] LABS: BILIRUBIN, TOTAL 1.7 mg/dL (0.02-1.3); POTASSIUM 4.9 mmol/l (3.5-5.1)
[2024-06-16 07:01] VITALS: BP 137/68
[2024-06-16 10:25] VITALS: BP 109/55
[2024-06-16 15:51] VITALS: BP 116/61
[2024-06-16 19:16] VITALS: BP 101/49
[2024-06-17] VITALS (9 sets, daily range): BP systolic 98–141; BP diastolic 49–65
[2024-06-17 08:41] LABS: ALBUMIN 2.5 g/dL (3.2-5.0); BILIRUBIN, TOTAL 1.2 mg/dL (0.02-1.3); CREATININE 0.5 mg/dL (0.5-1.0); POTASSIUM 4.5 mmol/l (3.5-5.1); TOTAL PROTEIN 4.9 g/dL (6.3-8.2)
[2024-06-17 08:49] LABS: BASO% 0.8 % (0-3); EOS% 1.3 % (0-8); HEMATOCRIT 33.5 % (37.0-47.0); HEMOGLOBIN 10.2 g/dl (12.0-16.0); LYMPH% 14.1 % (15-41); MEAN CORPUSCULAR HGB 32.3 pG CALC (26.0-32.0); MEAN CORPUSCULAR HGB CONC 30.4 g/dL CAL (32.0-36.0); MONO% 7.3 % (2-13); NEUT# 4.53 thou/uL (2.00-7.15); NEUT% 75.5 % (42-76); RED BLOOD COUNT 3.16 mill/uL (4.20-5.60); RED CELL DISTRI WIDTH 22.6 % (11.5-15.5)
[2024-06-18 00:18] VITALS: BP 101/51
[2024-06-18 01:45] VITALS: BP 101/57
[2024-06-18 04:15] VITALS: BP 123/61
[2024-06-18 06:16] VITALS: BP 123/61
[2024-06-18 07:02] VITALS: BP 126/59
[2024-06-18 10:41] VITALS: BP 100/56
== END 2024-06-18 11:43 | DRG 552 ==
LOC: ED 10:55 → ED-I 13:03 → ED 13:03 → MS2 15:30
PROVIDERS: Family Medicine; Nurse Practitioner Family; ADMIT Internal Medicine; ATTEND Internal Medicine
PROC: 30233N1 Transfusion of Nonautologous Red Blood Cells into Peripheral Vein, Percutaneous Approach (ICD-10-PCS; principal; 2024-06-15)
PROC: 30233N1 Transfusion of Nonautologous Red Blood Cells into Peripheral Vein, Percutaneous Approach (ICD-10-PCS; 2024-06-15)
DX: S22.080A Wedge compression fracture of T11-T12 vertebra, initial encounter for closed fracture (principal); S32.010A Wedge compression fracture of first lumbar vertebra, initial encounter for closed fracture; N39.0 Urinary tract infection, site not specified; D64.9 Anemia, unspecified; I10 Essential (primary) hypertension; F03.90 Unspecified dementia, unspecified severity, without behavioral disturbance, psychotic disturbance, mood disturbance, and anxiety; M06.9 Rheumatoid arthritis, unspecified; K21.9 Gastro-esophageal reflux disease without esophagitis; E78.5 Hyperlipidemia, unspecified; I69.931 Monoplegia of upper limb following unspecified cerebrovascular disease affecting right dominant side; W01.0XXA Fall on same level from slipping, tripping and stumbling without subsequent striking against object, initial encounter; Y92.009 Unspecified place in unspecified non-institutional (private) residence as the place of occurrence of the external cause; Z87.11 Personal history of peptic ulcer disease; Z95.810 Presence of automatic (implantable) cardiac defibrillator; Z98.84 Bariatric surgery status; Z87.891 Personal history of nicotine dependence
CPT/HCPCS: J1650; J1940; P9016

== ENCOUNTER 2024-07-04 10:21 | Inpatient (IN) | payer MEDICARE ==
[2024-07-04] VITALS (45 sets, daily range): BP systolic 122–198; BP diastolic 62–128
[~2024-07-04] VITALS: Ht 152.4 cm; Wt 47.3 kg
[~2024-07-04 10:21] MED LIST changes: +KEFLEX500 MG PO; +LISINOPRIL20 M1 PO; +MULTI VIT PO; +POT CHLORIDE10 ME5 PO; +TRAZODONE50 MG PO; +[UNRECOGNIZED DRUG - OTHER] PO
--- NOTE | 2024-07-04 10:21 | NUR ---
PATIENT TO ER ROOM 10 VIA EMS STRETCHER. SHE CAME FROM [facility]. SHE SATED SHE HAS BEEN HAVING DIFFICULTY BREATHING AT UNKOWN TIME THIS MORNING. MD AT BEDSIDE. RESPIRATORY AT BEDSIDE OBTAINING ABG PATIENT NOTED IN THE 70S ON ROOM AIR AND CYANOTIC. SHE WAS PLACED ON 6L VIA NC.
--- NOTE | 2024-07-04 10:23 | NUR ---
PATIENT TO ROOM 10 VIA EMS
[2024-07-04 11:01] LABS: BASO% 0.1 % (0-3); HEMATOCRIT 37.6 % (37.0-47.0); HEMOGLOBIN 11.9 g/dl (12.0-16.0); IMMATURE GRANULOCYTES 0.5 % (0.0-5.0); LYMPH% 3.7 % (15-41); MEAN CELL VOLUME 100.5 fL CALC (80.0-100.0); MEAN CORPUSCULAR HGB 31.8 pG CALC (26.0-32.0); MEAN CORPUSCULAR HGB CONC 31.6 g/dL CAL (32.0-36.0); MONO% 5.4 % (2-13); NEUT# 13.49 thou/uL (2.00-7.15); NEUT% 90.3 % (42-76); RED BLOOD COUNT 3.74 mill/uL (4.20-5.60)
[2024-07-04 11:23] LABS: BILIRUBIN, TOTAL 1.6 mg/dL (0.02-1.3); CREATININE 0.9 mg/dL (0.5-1.0); TOTAL PROTEIN 5.8 g/dL (6.3-8.2)
[2024-07-04] MEDS ORDERED: KETOROLAC TROMETHAMINE 15 MG/ML SDV IV ONE (11:25)
[2024-07-04] MEDS ORDERED: cefTRIAXone SODIUM 2 GM in SODIUM CHLORIDE 0.9% 100 ML IV ONE (11:25)
[2024-07-04] MEDS ORDERED: AZITHROMYCIN 500 MG in SODIUM CHLORIDE 0.9% 500 ML IV ONE (11:25)
[2024-07-04 11:26] LABS: POTASSIUM 2.7 mmol/l (3.5-5.1)
[2024-07-04] MEDS ORDERED: MAGNESIUM SULFATE HEPTAHYDRATE 50 ML IV ONE (11:30)
[2024-07-04] MEDS ORDERED: POTASSIUM CHLORIDE 20 MEQ/PKT POWDER PO ONE (11:30)
[2024-07-04] MEDS ORDERED: ENOXAPARIN SODIUM 100 MG/ML SYR SC ONE (11:40)
[2024-07-04] MEDS ORDERED: ASPIRIN 81 MG/TAB PO ONE (11:40)
--- NOTE | 2024-07-04 12:20 | NUR ---
CALL PLACED TO NURSE GAMING AT [facility], COMMUNICATION REQUESTING CURRENT [facility] FAX NUMBER GIVEN
[2024-07-04 12:24] LABS: URINE BILIRUBIN - DIPSTICK Negative (NEGATIVE); URINE BLOOD DIPSTICK Moderate (NEGATIVE); URINE GLUCOSE - DIPSTICK Negative (NEGATIVE); URINE KETONE Negative (NEGATIVE); URINE LEUK ESTERASE Negative (NEGATIVE); URINE NITRITE - DIPSTICK Negative (Negative); URINE PH 5.5 (4.5-8.0); URINE PROTEIN - DIPSTICK Negative (NEG-TRACE); URINE SPECIFIC GRAVITY 1.015; URINE UROBILINOGEN - DIPSTICK 0.2 E.U./dL (0.2)
[2024-07-04 12:30] LABS: URINE COLOR Yellow; URINE EPITHELIAL CELLS FEW EPI/hpf (0-FEW)
--- NOTE | 2024-07-04 13:12 | NUR ---
ASSISSTED PATIENT'S SISTER WITH PLACING ADULT BRIEF AND PLACING PILLOWS TO COMFORT BETWEEN LEGS AND FEET.
[2024-07-04] MEDS ORDERED: FUROSEMIDE 40 MG/4 ML SDV IV ONE (13:15)
[2024-07-04] MEDS ORDERED: SODIUM CHLORIDE 0.9% 250 ML IV PRN (13:20)
[2024-07-04] MEDS ORDERED: NITROGLYCERIN IN D5W 250 ML IV ONE (13:20)
[2024-07-04] MEDS ORDERED: AZITHROMYCIN 250 MG/TAB PO ONE (13:20)
[2024-07-04] MEDS ORDERED: ONDANSETRON HCl 4 MG/2 ML SDV IV PRN (14:15)
[2024-07-04] MEDS ORDERED: HYDROXYCHLOROQ200 MG PO (14:15)
[2024-07-04] MEDS ORDERED: ONDANSETRON 4 MG/TAB ODT SL PRN (14:15)
[2024-07-04] MEDS ORDERED: ACETAMINOPHEN 325 MG/TAB PO PRN (14:15)
[2024-07-04] MEDS ORDERED: Polyethylene Glycol 3350 17 GM/PKT PO PRN (14:15)
[2024-07-04] MEDS ORDERED: LASIX 40 MG TAB40 MG PO (14:17)
[2024-07-04] MEDS ORDERED: hydrALAZINE HCL 20 MG/ML VIAL(1 ML) IV PRN (14:20)
[2024-07-04] MEDS ORDERED: POTASSIUM CHLORIDE 20MEQ 200 ML IV ONE (14:20)
[2024-07-04] MEDS ORDERED: LORTAB 7.57.5 MG PO (14:25)
--- NOTE | 2024-07-04 14:50 | NUR ---
HAYES ASSISTED WITH MARIUM-CARE AND NEW ADULT BRIEF PLACED
[2024-07-04] MEDS ORDERED: POTASSIUM CHLORIDE 20MEQ 100 ML IV SCH (15:00)
[2024-07-04] MEDS ORDERED: CEFEPIME HYDROCHLORIDE 2 GM in SODIUM CHLORIDE 0.9% 100 ML IV SCH (17:00)
--- NOTE | 2024-07-04 17:20 | NUR ---
RECEIVED TELEPHONE CALL FROM NURSE GAMING AT [facility] FOR PATIENT CARE UPDATE, PATIENT ADMITTED.
--- NOTE | 2024-07-04 17:25 | NUR ---
PATIENT NOTED HYPERVENTILATING ON THE BIPAP. HER O2 WAS DROPPING IN THE 80S. FIO2 INCREASED TO 45, RESPIRATORY MADE AWARE.
--- NOTE | 2024-07-04 17:58 | NUR ---
TELEPHONE CALL PLACED TO DR CLARK FOR ANXIETY MEDICATION TO ASSIST WITH Bi-PAP COMFORT.
[2024-07-04] MEDS ORDERED: DOXYCYCLINE HYCLATE 100 MG in SODIUM CHLORIDE 0.9% 100 ML IV SCH (18:00)
--- NOTE | 2024-07-04 19:00 | NUR ---
TRANSITION OF CARE BEDSIDE REPORT TO UZIEL ABBOTT
--- NOTE | 2024-07-04 19:00 | NUR ---
REPORT RECEIVED FROM MILENA CARDENAS AT THIS TIME. PT REFUSING BIPAP, PT NOTED WITH MODERATE ANXIETY, PT WILL BE ER HOLD AT THIS TIME ICU HOLD, PT NITRO GTT RUNNING, AWAITING MS2 BED FOR COMFORT.
[2024-07-04] MEDS ORDERED: ENOXAPARIN SODIUM 40 MG/0.4 ML SYR SC SCH (21:00)
[2024-07-04] MEDS ORDERED: LORazepam 2 MG/ML IV SCH (21:00)
--- NOTE | 2024-07-04 21:40 | NUR ---
PT TRANSFERRED TO ER 14 WITH ADDITIONAL STAFF, BIPAP IN PLACE, PT MEDICATED DUE TO MODERATE ANXIETY, NITRO GTT REMAINS IN PLACE, AWAITING ALL FURTHER ORDERS AT THIS TIME FOR ADMISSION. PT BELONGINGS AT BEDSIDE.
--- NOTE | 2024-07-04 21:40 | NUR ---
PT TRANSFERRED TO ER 14 WITH ADDITIONAL STAFF, BIPAP IN PLACE, PT MEDICATED DUE TO MODERATE ANXIETY, NITRO GTT REMAINS IN PLACE, AWAITING ALL FURTHER ORDERS AT THIS TIME FOR ADMISSION, PT BELONGINGS AT BEDSIDE.
--- NOTE | 2024-07-04 22:00 | NUR ---
PT CHANGED DUE MODERATE BM AND INCONTINENCE AT THIS TIME, PURE WICH PLACED, CLEAN BRIEF INTACT, PT BIPAP REMAINS IN PLACE, O2 AT 91%, PT REPEATEDLY ATTEMPTS TO REMOVE BIPAP, SERVICE DESK TECHNICIAN WILL MONITOR, PT RESTING AT THIS TIME ON CONTINUOUS MONITOR. CALL LIGHT WITHIN REACH, BELONGINGS AT BEDSIDE.
--- NOTE | 2024-07-04 23:00 | NUR ---
PT CONTINUES TO ATTEMPT TO REMOVE BIPAP, NOTED AT 62% WITHOUT BIPAP, BIPAP REPLACED ON PT, PT EDUCATED ON NEED FOR BIPAP VOICES UNDERSTANDING, PT STATES SHE WANTS TO GO HOME, PT EDUCATED ON CARE PLAN AT THIS TIME, CALL LIGHT IN REACH.
[2024-07-05] VITALS (27 sets, daily range): BP systolic 88–176; BP diastolic 38–108
--- NOTE | 2024-07-05 00:30 | NUR ---
PT MEDICATED PER ORDERS, NITRO GTT MAINTAINED, PT CONTINUES TO ATTEMPT TO REMOVE BIPAP, PT FOUND WITHOUT BIPAP AT 61%, UPDATED/EDUCATED ON NEED FOR BIPAP, VOICES UNDERSTANDING, WILL MONITOR BIPAP AT THIS TIME, PT ON CONTINUOUS MONITORING.
--- NOTE | 2024-07-05 01:15 | NUR ---
RT AT BEDSIDE.
--- NOTE | 2024-07-05 01:20 | NUR ---
DUE TO MULTIPLE REMOVALS OF BIPAP, CIRCLE SAW OPERATOR PLACED AT BEDSIDE FOR ASSISTANCE, VSS, NITRO GTT MAINTAINED, PT COMFORT MEASURES IN PLACE.
--- NOTE | 2024-07-05 03:30 | NUR ---
PT REMAINS RESTLESS AND AGITATED, PT CONTINUES TO STTEMPT REMOVING BIPAP AT THIS TIME, SITTER AT BEDSIDE, PT O2 REMAINS AT 88-92% ON BIPAP PER RT SETTINGS, PUREWICK IN PLACE. CALL LIGHT WITHIN REACH.
[2024-07-05 04:34] LABS: BASO% 0.1 % (0-3); HEMATOCRIT 36.6 % (37.0-47.0); HEMOGLOBIN 11.6 g/dl (12.0-16.0); IMMATURE GRANULOCYTES 1.3 % (0.0-5.0); LYMPH% 3.1 % (15-41); MEAN CELL VOLUME 100.8 fL CALC (80.0-100.0); MEAN CORPUSCULAR HGB CONC 31.7 g/dL CAL (32.0-36.0); MONO% 4.2 % (2-13); NEUT# 15.38 thou/uL (2.00-7.15); NEUT% 91.3 % (42-76); RED BLOOD COUNT 3.63 mill/uL (4.20-5.60); RED CELL DISTRI WIDTH 18.2 % (11.5-15.5)
[2024-07-05 04:43] LABS: ALBUMIN 2.5 g/dL (3.2-5.0); BILIRUBIN, TOTAL 1.4 mg/dL (0.02-1.3); CREATININE 1.5 mg/dL (0.5-1.0); MAGNESIUM 2.4 mg/dL (1.6-2.3); TOTAL PROTEIN 5.1 g/dL (6.3-8.2)
[2024-07-05 04:51] LABS: POTASSIUM 3.3 mmol/l (3.5-5.1)
--- NOTE | 2024-07-05 05:30 | NUR ---
PT MEDICATED PER ORDERS, UPDATED ON CONTINUOUS PLAN OF CARE, PT BIPAP REMAINS IN PLACE, NITRO GTT MAINTAINED, ABX RUNNING, PT IV NOTED TO BE OCCULUDED TO LAC, REMOVED AT THIS TIME, PT WITH MULTIPLE ATTEMPTS FOR ADDITIONAL IV, UNSUCCESSFUL. VSS, SITTER AT BEDSIDE DUE TO CONTINUED AGITATION OF PT FROM BIPAP.
[2024-07-05] MEDS ORDERED: FUROSEMIDE 40 MG/4 ML SDV IV SCH (06:00)
[2024-07-05] MEDS ORDERED: LORazepam 0.5 MG/TAB PO PRN (07:35)
[2024-07-05] MEDS ORDERED: MORPHINE SULFATE 4 MG/ML VIAL IV PRN (07:35)
--- NOTE | 2024-07-05 07:55 | NUR ---
INFORMED BY RN OF VO RECEIVED FROM DR LINTON TO PUT BIPAP ON S/B & PLACE PT ON NC. PT IS NOW ON GREEN HIGH FLOW CANNULA AT 15LPM W/SATS @ 91%. PT TOLERATING THE CANNULA WELL & BREATHING COMFORTABLY AT THIS TIME. WILL CONTINUE TO MONITOR.
[2024-07-05] MEDS ORDERED: HYDROcodone 7.5 MG/Acetaminophen 325 MG/COMBO PO SCH (08:00)
--- NOTE | 2024-07-05 08:00 | NUR ---
REPORT RECEIVED FROM NIGHT NURSE. PT IS ALERT, ORIENTED TO PERSON/TIME. PT HAS BEEN ON BIPAP WITH A SITTER AT BEDSIDE ALL NIGHT; PT HAS MOMENTS OF CONFUSION AND ANXIETY WHERE SHE PULLS AT BIPAP MASK AND MONITORING EQUPIPMENT. PER NIGHT NURSE, PT ONLY VOIDED ABOUT 100ML. DR. BAUTISTA AT BEDSIDE TO ASSESS PT. ORDERS RECEIVED TO BLADDER SCAN PT. PT HAS VOLUME GREATER THAN 800 ON BLADDER SCAN; BAJWA CATHETER PLACED PER DR. BAUTISTA ORDERS. 400ML OUT AND THEN CATHETER CLAMPED. LUNG SOUNDS COARSE THROUGHOUT. PER DR. LINTON, PT IS TO ATTEMPT TO GO ON NASAL CANNULA; PLACED ON HIGH FLOW BY RT; 15L. HEART SOUNDS S1S2; SINUS TACH LOW 100'S ON MONITOR. PT IS ON NITRO GTT, BUT DENIES ANY CHEST PAIN AT THIS TIME. PER DR. BAUTISTA, WILL TITRATE OFF. PULSES STRONG ALL EXTREMETIES. SKIN W/D; PT HAS MUCH SCATTERED BRUISING AND SMALL SKIN TEARS ON BILATERAL ARMS AND LEGS; LEFT LEG HAS DISCOLORATION. BS HYPOACTIVE. PT REPOSITIONED AFTER BEING CLEANED FROM SMALL BM. RESTING COMFORTABLY IN BED, SITTER AT BEDSIDE.
[2024-07-05] MEDS ORDERED: HYDROXYCHLOROQUINE SULFATE 200 MG/TAB PO SCH (09:00)
[2024-07-05] MEDS ORDERED: PANTOPRAZOLE SODIUM Sesquihydr 40 MG/TAB PO SCH (09:00)
[2024-07-05] MEDS ORDERED: ATORVASTATIN CALCIUM 10 MG/TAB PO SCH (09:00)
[2024-07-05] MEDS ORDERED: POTASSIUM CHLORIDE 20 MEQ/TAB PO SCH (09:00)
--- NOTE | 2024-07-05 10:00 | NUR ---
DR. BAUTISTA PHONED AND UPDATED ON PT STATUS. PT DOING WELL ON HIGH FLOW CANNULA, SATTING 90-95%. HOWEVER, PT BECOMING MORE CONFUSED, AND DOES NOT KNOW WHERE SHE IS. PT REORIENTED OFTEN BY SITTER. SO FAR GARETT HAS PUT OUT 1400 TOTAL. CALL LIGHT IN REACH.
[2024-07-05] MEDS ORDERED: PIPERACILLIN Sodium-Tazobactam 3.375 GM in SODIUM CHLORIDE 0.9% 100 ML IV SCH (12:00)
--- NOTE | 2024-07-05 12:00 | NUR ---
PT STILL LYING IN BED AND WEARING HIGH FLOW CANNULA AT 15L. PT BECOMING MORE CONFUSED, AWAKENING SUDDENLY AND THINKING SHE IS FALLING, AND OFTEN FORGETTING WHERE SHE IS AND WHAT IS HAPPENING. SITTER REMAINS AT BEDSIDE. CALL LIGHT IN REACH, VSS.
--- NOTE | 2024-07-05 13:00 | NUR ---
DR. BAUTISTA AT BEDSIDE TO SEE PT AGAIN AND SPEAK WITH PT'S SISTER REGARDING POC. FAMILY WISHES ARE TO CONSULT HOSPICE. HOSPICE CONSULT ORDERED AND CASE MANAGEMENT NOTIFIED.
--- NOTE | 2024-07-05 15:00 | NUR ---
PT MOVED TO ICU FROM ED VIA HOSPITAL BED. PT REMAINS ON 15L HIGH FLOW OXYGEN. REMAINS CONFUSED AND ANXIOUS. SITTER AT BEDSIDE TO REORIENT PT AND KEEP FROM PULLING ON MONITORING EQUIPMENT.
--- NOTE | 2024-07-05 16:09 | NUR ---
PT ASLEEP IN BED. OXYGEN TITRATED DOWN TO 10L. SITTER AT BEDSIDE. VSS.
--- NOTE | 2024-07-05 20:00 | NUR ---
RECD PT IN REPORT FROM DAY SHIFT RN. PT HAD HOSPICE CONSULT TODAY, PLAN TO REEVALUATE WITH FAMILY AND POA TOMORROW AT BEDSIDE MEETING AT 3PM PER DAY SHIFT AND HOSPICE NOTE IN CHART. PT HAS ROUTINE Q4 PAIN MEDICATION ORDERED, MORPHINE Q4HR, ATIVAN Q8HR - BOTH PRN ORDERED. SITTER PRESENT BEDSIDE D/T PATIENT BEING CONFUSED, DISORIENTED AND RESTLESS. INCREASED FALL RISK. NO SIGN OF DISTRESS AT THIS TIME. #18 RAC FLUSHES WELL NO SIGN OF INFILTRATION OR EXTRAVASATION. RESTING COMFORTABLY WITH FALL PRECAUTIONS IN PLACE.
[2024-07-05] MEDS ORDERED: ENOXAPARIN SODIUM 100 MG/ML SYR SC SCH ×2 (21:00)
[2024-07-05] MEDS ORDERED: ENOXAPARIN SODIUM 60 MG/0.6 ML SYR SC SCH (21:00)
[2024-07-05] MEDS ORDERED: traZODone HCL 50 MG/TAB PO SCH (21:00)
--- NOTE | 2024-07-05 23:00 | NUR ---
PT LINEN CHANGED, MARIUM CARE AND CLEANING PERFORMED. DENIES PAIN OR SOB AT THIS TIME. PT REMAINS ON 8LNC HUMIDIFIED AND RETAINS SATURATIONS > 90%. HEARTRATES MAINTAIN IN THE 80S, HISTORY OF AICD NO PACER SPIKES NOTED ON TELEMETRY. BP/HR VSS AT THIS TIME. PT MEDICATED PER JUL WITH SCHEDULED PAIN MEDICATIONS AND 2100 MEDICATIONS. SITTER ASSISTED TO REPOSITION AND OFFLOAD BONY PROMINENCES. PILLOWS UTILIZED FOR OFFLOADING. FALL PRECAUTIONS IN PLACE. SITTER REMAINS BEDSIDE.
[2024-07-06] VITALS (15 sets, daily range): BP systolic 83–144; BP diastolic 45–95
--- NOTE | 2024-07-06 | NUR ---
PT REPOSITIONED FOR COMFORT. SITTER REMAINS BEDSIDE. FALL PRECAUTIONS IN PLACE. NO SIGN OF DISTRESS OR COMPLICATIONS NOTED AT THIS TIME. PT IS RESTING COMFORTABLY, RECEIVED SCHEDULED PAIN MEDICATION ORDERED AT 0000. SITTER BEDSIDE WITH FALL PRECAUTIONS IN PLACE.
--- NOTE | 2024-07-06 02:45 | NUR ---
PT IS EXPERIENCING INTERMITTENT RESPIRATORY DEPRESSION WITH PROFOUND OXYGEN SATURATIONS, MOMENTARILY TOP 84-85%, SUSTAINING 88-89%. NO IMMEDIATE DISTRESS NOTED OR STRUGGLE TO BREATH. NO INDICATION OF PAIN OR DISCOMFORT. SITTER REMAINS BEDSIDE. RESTING CALMLY, APPEARS TO POSSIBLY BE ACTIVELY TRANSITIONING. EXTREMITIES COOLER THAN PREVIOUSLY WITH MARKED REDUCTION IN PERFUSION. NO CYANOTIC AREAS, HOWEVER TEMPERATURE IS SIGNIFICANTLY COOLER THAN PRIOR IN THE SHIFT. RESPIRATORY RATE HAS REDUCED OVER THE COURSE OF THE SHIFT. FALL PRECAUTIONS REMAIN IN PLACE. SITTER REMAINS BEDSIDE FOR SAFETY. WILL HOLD 0400AM DOSE OF NARCOTIC FOR RESPIRATORY DEPRESSION TO NOT INCREASE THE SUPRESSION OF THE RESPIRATORY DRIVE.
--- NOTE | 2024-07-06 05:07 | NUR ---
PT IS RESTING CALMLY WITH NO SIGNS OF DISTRESS. HAS REMAINED STABLE THROUGHOUT THE SHIFT. BAJWA EMPTIED. REPOSITIONED FOR COMFORT. PT REMAINS STABLE VSS WITH NO SIGN CONCERNS AT THIS TIME AND NO INDICATION OF PAIN. FALL PRECAUTIONS AND SITTER REMAIN IN PLACE.
--- NOTE | 2024-07-06 06:28 | NUR ---
PT MEDICATED FOR MILD AGITATION/IRRITABILITY WITH PO ATIVAN 0.5MG Q8HR. OFFERED WATER AND APPLESAUCE PER REQUEST. REPOSITIONED FOR COMFORT. SITTER REMAINS BEDSIDE WITH FALL PRECAUTIONS IN PLACE. MD GIVEN AM UPDATE.
--- NOTE | 2024-07-06 08:00 | NUR ---
PT IS AWAKE IN BED. SITTER AT BEDSIDE. CALL LIGHT IN REACH.
--- NOTE | 2024-07-06 09:04 | NUR ---
PT SON JOAQUIM CALLED AND WAS TRANSFERED TO THE PORTABLE PHONE. HE SPOKE WITH THE PT.
[2024-07-06] MEDS ORDERED: HYDROcodone 7.5 MG/Acetaminophen 325 MG/COMBO PO PRN (09:10)
--- NOTE | 2024-07-06 09:56 | NUR ---
PT IS AWAKE IN BED, SITTER AT BEDSIDE. CALL LIGHT IN REACH.
--- NOTE | 2024-07-06 12:09 | NUR ---
PT IS RESTING IN BED WITH EVEN AND UNLABORERED RESPIRATIONS. CALL LIGHT IN REACH. SITTER IN THE ROOM.
--- NOTE | 2024-07-06 13:24 | NUR ---
FAMILY CONTACED SPOKE WITH JASON PADILLA REGARDING PATIENTS CURRENT STATUS. SHE STATED SHE WILL BE HERE SOON.
--- NOTE | 2024-07-06 13:53 | NUR ---
FAMILY AT BEDSIDE.
--- NOTE | 2024-07-06 14:00 | NUR ---
PT IS AWAKE IN BED. SISTER JASON AND JASON'S AT BEDSIDE. CALL LIGHT IN REACH.
--- NOTE | 2024-07-06 15:58 | NUR ---
INCREASING PERIODS OF APNEA. SISTER JASON AT BEDSIDE, STATES SHE WANTS NOTHING DONE.
--- NOTE | 2024-07-06 16:04 | NUR ---
PT NOTED APNEIC ON THE MONITOR, MULTIPLE PEA PULSES NOTED ON THE MONITOR. SISTER AT BEDSIDE. PATIENT HEARTBEAT AND PULSES CHECKED AND VERIFIED BY MARCY AND MYSELF.
--- NOTE | 2024-07-06 16:05 | NUR ---
DR. BAUTISTA NOTIFIED
--- NOTE | 2024-07-06 16:19 | NUR ---
CALLED [facility] AT , SPOKE WITH BRANDON. SHE GAVE ME THE REFERENCE NUMBER THAT FOLLOWS; [id number].
--- NOTE | 2024-07-06 16:20 | NUR ---
THE PATIENT'S SISTER, JASON, STATED SHE WANTS [facility] TO BE CONTACTED
--- NOTE | 2024-07-06 18:02 | NUR ---
SISTER JASON TOOK HOME PATIENT BELONGINGS.
--- NOTE | 2024-07-06 18:02 | NUR ---
POSTMORTUM CARE COMPLETED, IV AND BAJWA REMOVED.
--- NOTE | 2024-07-06 20:53 | NUR ---
MULTIPLE CALLS PLACED TO [facility] RE NO CALL RETURNED FROM EYE BANK FOR OK TO RELEASE. FIRST CALL AT 1929, SECOND CALL AT 2034, SPOKE WITH ROSELINE WHO SAID [facility] HAS PAGED BANK X 4 TIMES WITH NO RESPONSE. OK TO RELEASE BODY PER [facility]. CALLED [facility]NOX AND [facility] PER FAMILY REQUEST. REQUEST TO RETRIEVE BODY ENTERED. ENROUTE TO MANAGER BAKERY. SUP NOTIFIED.
--- NOTE | 2024-07-06 21:03 | NUR ---
[facility] EYE BANK RELEASE REF #[id number]
--- NOTE | 2024-07-06 22:18 | NUR ---
PT RETRIEVED BY HOME. LEFT FACILITY AT 2217PM
== END 2024-07-06 16:04 | disposition expired ==
LOC: ED 10:21 → ED-I 13:20 → ED 13:37 → ED-I 13:38 → ICU 07-05 13:49
PROVIDERS: Family Medicine; ADMIT Internal Medicine; ATTEND Internal Medicine
PROC: 5A09457 Assistance with Respiratory Ventilation, 24-96 Consecutive Hours, Continuous Positive Airway Pressure (ICD-10-PCS; principal; 2024-07-04)
PROC: 0T9B70Z Drainage of Bladder with Drainage Device, Via Natural or Artificial Opening (ICD-10-PCS; 2024-07-05)
DX: I11.0 Hypertensive heart disease with heart failure (principal); J18.9 Pneumonia, unspecified organism; I21.4 Non-ST elevation (NSTEMI) myocardial infarction; J96.01 Acute respiratory failure with hypoxia; I50.9 Heart failure, unspecified; K21.9 Gastro-esophageal reflux disease without esophagitis; M06.9 Rheumatoid arthritis, unspecified; F41.9 Anxiety disorder, unspecified; R33.9 Retention of urine, unspecified; I69.934 Monoplegia of upper limb following unspecified cerebrovascular disease affecting left non-dominant side; M48.56XD Collapsed vertebra, not elsewhere classified, lumbar region, subsequent encounter for fracture with routine healing; E78.5 Hyperlipidemia, unspecified; Z51.5 Encounter for palliative care; Z66 Do not resuscitate; Z87.891 Personal history of nicotine dependence; Z95.810 Presence of automatic (implantable) cardiac defibrillator; Z87.19 Personal history of other diseases of the digestive system
CPT/HCPCS: J0456; J0692; J0696; J1650; J1885; J1940; J2060; J2305; J2543; J3475; J3480; Q9967